=== PATIENT | female | born 1975 | race Hispanic/Latino ===

== ENCOUNTER 2018-03-17 04:46 | Emergency (ER) | payer SELFPAY ==
[2018-03-17 05:52] LABS: #Basophils 0.1 thou/uL (0.0-0.2); #Eosinphils 0.1 thou/uL (0.0-0.7); #Lymphocytes 2.1 thou/uL (1.20-3.40); #Monocytes 0.5 thou/uL (0.11-0.59); #Neutrophils 4.8 thou/uL (1.40-6.50); %Basophils 0.8 % (0.0-1.0); %Eosinophils 1.5 % (0.0-10.0); %Lymphocytes 27.8 % (21.0-51.0); %Monocytes 6.6 % (0.0-10.0); %Neutrophils 63.2 % (42.0-75.0); Hemoglobin 8.2 g/dL (12.0-16.0); MDiff Complete? YES; Mean Corpuscular HGB CONC 32.4 g/dL (32.0-36.0); Mean Corpuscular Hemoglobin 24.1 pg (27.0-31.0); Mean Corpuscular Volume 74.4 fL (78.0-98.0); Mean Platelet Volume 10.4 fL (7.4-10.4); Microcytosis SLIGHT = 6-15 cells (100X) (0-5/hpf); Platelet Count 217 thou/uL (130-400); Polychromasia SLIGHT = 2-3 cells (100X) (0-2/hpf); White Blood Cell (WBC) Count 7.5 thou/uL (4.8-10.8)
--- NOTE | 2018-03-17 13:03 | CON ---
DATE OF CONSULTATION: 03/17/2018 TYPE OF CONSULTATION: Gynecologic ER consultation. ER PHYSICIAN: Priscilla Britton MD. CONSULTING PHYSICIAN: Raf Lee MD. CHIEF COMPLAINT: Vaginal bleeding. HISTORY OF PRESENT ILLNESS: Ms. Mcdonald is a 42-year-old , G2, P2, last menstrual period 10 days ago, who presents to the emergency room complaining of vaginal bleeding and she believes that something is projecting from her vagina. She was evaluated by Dr. Britton and a dark fleshy mass was seen in the vagina. She has called me for further evaluation. PAST OBSTETRICAL HISTORY: x2. The patient is unable to tell me when she had her last Pap smear. PAST MEDICAL HISTORY: Diabetes mellitus. CURRENT MEDICATIONS: Metformin twice a day. PAST SURGICAL HISTORY: None. ALLERGIES: NONE. SOCIAL HISTORY: She denies tobacco, alcohol, or drug use. FAMILY HISTORY: Unremarkable. REVIEW OF SYSTEMS: She denies nausea, vomiting, fever, chills, dizziness, or shortness of breath. PHYSICAL EXAMINATION: VITAL SIGNS: In the ER currently, blood pressure 111/63, pulse 85, respirations 18, and temperature is 98.9. ABDOMEN: Soft. There is no guarding or rebound. PELVIC: Externally, there are no lesions. Speculum exam of the vagina shows a large dark necrotic polypoid mass extending from the cervix consistent with a very large endocervical polyp. A ring forceps is taken and the polyp was removed. There was no bleeding from the cervix after its removal. The cervix is normal in appearance and there are no gross lesions. On bimanual exam, her uterus appears to be approximately 10 to 12 weeks in size. Previous ultrasound has been consistent with fibroids and a small ovarian cyst. ASSESSMENT: Large endocervical polyp, status post removal. PLAN: The patient will be discharged home. The patient may follow up at [facility] for Pap smear and followup. She has been given complete precautions. Job ID: [id number]
--- NOTE | 2018-03-22 08:48 | PDOC.EVN ---
Event Note - Event Note Event Note: Post discharge lab check: Asked to follow up path report: Path report checked today- benign polyp, no abnormal tissue identified.
== END 2018-03-17 07:55 | disposition home or self-care (01) ==
LOC: ERS 04:46
DX: D25.9 Leiomyoma of uterus, unspecified (principal); N84.1 Polyp of cervix uteri
CPT/HCPCS: 36415; 85025; 88305; 99284